=== PATIENT | female | born 1950 | race Caucasian/White ===

== ENCOUNTER 2019-03-11 10:43 | Emergency (ER) | payer MEDICARE ==
[~2019-03-11] VITALS: Ht 167.6 cm; Wt 73.0 kg
[2019-03-11] MEDS ORDERED: ketorolac trometh. 30mg/ml inj. IV ONE (11:45)
[2019-03-11] MEDS ORDERED: morphine 2 MG/ML inj. syringe IV ONE (11:45)
--- NOTE | 2019-03-11 12:57 | NUR ---
Pt reports the pain is currently 0/10. Pt has stable vitals and is awaiting radiology results.
[2019-03-11] MEDS ORDERED: CELE-193 PO (13:35)
[2019-03-11 13:52] VITALS: BP 140/88
== END 2019-03-11 13:55 | disposition home or self-care (01) ==
LOC: ER 10:44
DX: S13.4XXA Sprain of ligaments of cervical spine, initial encounter (principal); M48.00 Spinal stenosis, site unspecified; Z88.0 Allergy status to penicillin; Z88.8 Allergy status to other drugs, medicaments and biological substances; V49.88XA Car occupant (driver) (passenger) injured in other specified transport accidents, initial encounter; Y93.89 Activity, other specified; Y92.413 State road as the place of occurrence of the external cause; Y99.9 Unspecified external cause status
CPT/HCPCS: 72125; 96374; 96375; 99284; J1885; J2270